=== PATIENT | female | born 1985 | race Caucasian/White ===

== ENCOUNTER → 2018-09-15 10:31 | Outpatient (CLI) | payer OTHER, SELFPAY ==
--- NOTE | 2018-09-15 10:36 | BI_ITS ---
MAMMOGRAPHY - BILATERAL SCREENING REASON FOR EXAM: Female, 33 years old. Routine annual screening examination. PERTINENT HISTORY: Non-contributory. Retraction of the right nipple. TECHNIQUE: Digital bilateral breast robby (3D mammographic acquisition) in the CC and MLO projections. 2-D mediolateral oblique (MLO) and craniocaudad (CC) views of both breasts were obtained. CAD: Full Field Digital Mammography with Computer Added Detection was performed. COMPARISON: None. Baseline examination. FINDINGS: Breast Composition: The breasts are heterogeneously dense, which may obscure small masses. A cluster microcalcification and questionable tiny nodule seen in the deep medial retroareolar region of the right breast a biopsy is recommended for further evaluation. No other significant abnormalities are identified. BI/SCREENING MAMM (CAD), BILAT IMPRESSION: Clustered microcalcification and tiny nodular density in the medial retroareolar region of the right breast as described. A biopsy is recommended for further evaluation. ASSESSMENT CATEGORY: BIRADS Category 4: Suspicious - Biopsy Should Be Considered. A letter regarding these results will be sent to the patient by the facility within 30 days. Approximately 10% of breast cancers are not detected by mammography. A normal mammogram should not delay biopsy of a clinically suspicious abnormality. [id number] Electronically Signed: Daniel Monroy MD at 14:32 EST Tel [phone], Service support ,
== END ==
PROVIDERS: Family Provider Internal Medicine; PCP Internal Medicine; Referring Provider Internal Medicine; Visit Provider Internal Medicine
DX: N64.53 Retraction of nipple (principal); Z12.31 Encounter for screening mammogram for malignant neoplasm of breast
CPT/HCPCS: 77063; 77067

== ENCOUNTER → 2018-09-24 10:24 | Outpatient (CLI) | payer OTHER, SELFPAY ==
[2018-09-22 13:33] VITALS: BMI 29.2
--- NOTE | 2018-09-24 11:15 | BRBX_PTH ---
PATIENT: RITA SHOEMAKER LOC: [facility] U#:[id number] AGE/SX: 40/F ROOM: RE09/24/[address]: Dr. Tushar Mcfarland MD : 1985 BED: DIS: SPEC #: [id number] RECD: 09/24/18 13:44 STATUS: VLADIMIR REDagmar #: [id number] ALFRED: 09/24/18 11:[address]: Tushar Mcfarland DEPT: SURGICAL PATHOLOGY RECD BY: Rahul Harris ENTERED: 09/24/18 13:44 SP TYPE: BREAST BX OTHR DR: Dr. Melba Orta DO Tissues: Right breast, NOS Procedures: Surgery Specimen Level IV HEADER OPERATION: Right stereotactic breast biopsy PRE-OP DIAGNOSIS: Right breast medial density with calcifications TISSUE SUBMITTED: Right breast core tissue ISCHEMIC TIME: 2 minutes FIXATION TIME: 8 hours MICROSCOPIC DIAGNOSIS Right breast, stereotactic core biopsy: Fibroadenoma with focal calcifications. Negative for atypia or malignancy. SJ:karen 09/27/18 COMMENT Correlation with clinical, radiologic findings and appropriate follow up are necessary. MICROSCOPIC DESCRIPTION Slides are reviewed. GROSS DESCRIPTION Received is one container labeled with the patient's name and not further designated. The specimen consists of multiple elongated fragments of goyal-yellow fibroadipose tissue that in aggregate measure 4 x 3 x 0.3 cm. The entire specimen is submitted in two cassettes. / TEDDY:karen 09/24/18 TC:1 CPT: 58051
--- NOTE | 2018-09-24 11:36 | PCM.OPRPT ---
Problem List (1) Abnormal mammogram of right breast Status: Acute Report of Operation Date of Procedure: 09/24/18 Pre-Operative Diagnosis: Clustered microcalcifications medial right breast Post-Operative Diagnosis: Same Surgery/Procedure Performed:: Stereotactic needle core biopsy right breast Description of Surgical Findings:: Timeout informed consent was obtained. 33-year-old female was taken to the stereotactic room. She was placed prone on the table. The right breast was placed in the cc view. Stereotactic images were obtained. The microcalcifications in question rapidly identified. A single target site was selected. The breast was prepped with Betadine. 1% lidocaine was used as local anesthetic. A total of 8 cc was used. A small stab incision was created. An 8-gauge mammotome needle resolve needle was advanced to prefire depth. Prefire films were obtained demonstrating adequate localization. The device was fired. 6 cores were obtained. Specimen mammograms were obtained. Course 1 and 2 had multiple microcalcifications present consistent with the preoperative views. A marking clip was left at 12:00. She was released from the device. Pressure was held for hemostasis. Steri-Strip Telfa OpSite dressing applied. CC and mediolateral views had been obtained. Good localization. No apparent complication. She was given activity and wound care instructions. The specimens were immediately transferred to formalin. No apparent complications. She will be notified of pathology results as they become available. Tushar Mcfarland M.D., F.A.C.S. Type of Anesthesia:: Local
== END ==
PROVIDERS: Family Provider Internal Medicine; PCP Internal Medicine; Referring Provider Surgery; Visit Provider Surgery
DX: D24.1 Benign neoplasm of right breast (principal); Z79.3 Long term (current) use of hormonal contraceptives
CPT/HCPCS: 19081; 88305; J7050

== ENCOUNTER 2019-11-02 01:02 | Emergency (ER) | payer OTHER, SELFPAY ==
[2018-09-22 13:33] VITALS: BMI 29.2
[2019-11-02 01:03] VITALS: BP 126/76; PULSE 90; RESP 18; TEMP 36.8; O2SAT 97; BMI 30.9
--- NOTE | 2019-11-02 01:49 | ED.VISSUMM ---
- ER Visit Summary Date of Service: 11/02/19 Chief Complaint: Left ear pain History of Present Illness: The patient is a 34 F who had a recent upper respiratory infection and is now having left ear pain. She tried Flonase with no improvement. Physical Examination: Left TM is erythematous and bulging. Otherwise exam is unremarkable. Test Results: None indicated Emergency Department Course and Treatment: Patient has an upper respiratory infection which likely evolved into a otitis media. She can continue Flonase. Will add Augmentin and Afrin. Use [id number] remedies for pain. Patient declined steroids. Return for any new or worsening issues. Treatment Plan: As above Disposition: Discharge Impression: 1. Left otitis media This note was generated with Directly dictation software. It may contain incorrect words, spelling, and punctuation that were not noted in review of the chart prior to signing ED Disposition - Plan for ED Patient: Disposition: Home or Assisted Living Instructions: OTITIS MEDIA, Abx Tx (Adult) Prescriptions: Amox/Clavulanate Tablet [Augmentin Tablet] 875 mg PO Q12H #20 tab Prescription Printed Referrals: Melba Orta DO [Primary Care Provider] -
[2019-11-02] MEDS: Oxymetazoline 0.05% 1 SPRAY SPRAY.BTL 2 SPRAY NASAL (01:56)
[2019-11-02] MEDS: Amox/Clavulanate 875 MG Tablet PO (01:56)
== END 2019-11-02 01:58 | disposition home or self-care (01) ==
LOC: ED 01:49
PROVIDERS: Emergency Provider Emergency Medicine; Family Provider Internal Medicine; PCP Internal Medicine
DX: H66.92 Otitis media, unspecified, left ear (principal)
CPT/HCPCS: 99283

== ENCOUNTER → 2021-10-15 | Outpatient (CLI) | payer OTHER, SELFPAY ==
[2021-10-17 16:49] LABS: HPV Reflexed? NOT INDICATED
== END | disposition home or self-care (01) ==
LOC: LABSPEC 12:30
PROVIDERS: PCP Internal Medicine; Referring Provider Internal Medicine; Visit Provider Internal Medicine
DX: Z01.419 Encounter for gynecological examination (general) (routine) without abnormal findings (principal)
CPT/HCPCS: 88175; G0145

== ENCOUNTER 2021-11-13 09:05 | Outpatient (CLI) | payer OTHER, SELFPAY ==
--- NOTE | 2021-11-13 09:07 | BI_ITS ---
MAMMOGRAPHY - BILATERAL SCREENING REASON FOR EXAM: Female, 36 years old. Routine annual screening examination. PERTINENT HISTORY: Non-contributory. History of prior right stereotactic breast biopsy. TECHNIQUE: Digital bilateral breast tseven (3D mammographic acquisition) in the CC and MLO projections. 2-D mediolateral oblique (MLO) and craniocaudad (CC) views of both breasts were obtained. CAD: Full Field Digital Mammography with Computer Added Detection was performed. COMPARISON: Comparison is made with prior study dated 09/15/2018. FINDINGS: Breast Composition: The breasts are heterogeneously dense, which may obscure small masses. There are no dominant masses or suspicious calcifications. Stable small benign-appearing bilateral axillary lymph nodes. A tissue clip marker is seen in the central medial aspect of the right breast. No other significant abnormalities are identified. BI/SCRN MAMM (CAD)W/STEVEN BILAT IMPRESSION: Status post biopsy of the cluster of microcalcifications in the right breast. Yearly follow-up mammogram recommended. (A) ASSESSMENT CATEGORY: BIRADS Category 2: Benign. A letter regarding these results will be sent to the patient by the facility within 30 days. Approximately 10% of breast cancers are not detected by mammography. A normal mammogram should not delay biopsy of a clinically suspicious abnormality. [id number] Electronically Signed: Daniel Monroy MD at 9:45 EST , Service support ,
== END 2021-11-13 23:59 | disposition short-term general hospital (02) ==
LOC: OPBI 09:05
PROVIDERS: PCP Internal Medicine; Referring Provider Internal Medicine; Visit Provider Internal Medicine
DX: Z12.31 Encounter for screening mammogram for malignant neoplasm of breast (principal)
CPT/HCPCS: 77063; 77067

== ENCOUNTER → 2022-12-24 | Outpatient (CLI) | payer OTHER, SELFPAY ==
--- NOTE | 2022-12-24 09:58 | BI_ITS ---
MAMMOGRAPHY - BILATERAL SCREENING REASON FOR EXAM: Female, 37 years old. Routine annual screening examination. PERTINENT HISTORY: Non-contributory. Prior right stereotactic breast biopsy. TECHNIQUE: Digital bilateral breast steven (3D mammographic acquisition) in the CC and MLO projections. 2-D mediolateral oblique (MLO) and craniocaudad (CC) views of both breasts were obtained. CAD: Full Field Digital Mammography with Computer Added Detection was performed. COMPARISON: Comparison is made with prior study dated 11/13/2021 and 09/15/2018. FINDINGS: Breast Composition: The breasts are heterogeneously dense, which may obscure small masses. There are no dominant masses or suspicious calcifications. Stable small benign-appearing bilateral axillary lymph nodes. No other significant abnormalities are identified. There has been no significant change since the prior study. BI/SCRN MAMM (CAD)W/STEVEN BILAT IMPRESSION: Stable bilateral screening mammogram. Yearly follow-up mammogram recommended. (A) ASSESSMENT CATEGORY: BIRADS Category 2: Benign. A letter regarding these results will be sent to the patient by the facility within 30 days. Approximately 10% of breast cancers are not detected by mammography. A normal mammogram should not delay biopsy of a clinically suspicious abnormality. [id number] Electronically Signed: Daniel Monroy MD at 13:00 EST ,
== END | disposition home or self-care (01) ==
LOC: OPBI 09:57
PROVIDERS: PCP Internal Medicine; Visit Provider Internal Medicine
DX: Z12.31 Encounter for screening mammogram for malignant neoplasm of breast (principal)
CPT/HCPCS: 77063; 77067

== ENCOUNTER → 2023-10-14 | Outpatient (CLI) | payer OTHER, SELFPAY ==
--- NOTE | 2023-10-14 15:23 | RAD_ITS ---
STUDY: X-RAY CHEST REASON FOR EXAM: Female, 38 years old. ABN LUNG SOUNDS TECHNIQUE: PA and lateral views of the chest. COMPARISON: None. FINDINGS: The lungs are clear and expanded. There is no demonstrated pleural abnormality. Normal size heart. Normal mediastinum and [place]. Normal visualized pulmonary arteries. Normal visualized aortic arch and descending thoracic aorta. Normal visualized thoracic spine. Normal visualized ribs, clavicles, and shoulders. There is no demonstrated abnormality of the visualized soft tissue structures of the upper abdomen. RAD/Chest PA and Lateral IMPRESSION: Normal x-ray examination of the chest. Electronically Signed: Larissa Hollingsworth MD at 19:16 EST ,
== END | disposition home or self-care (01) ==
PROVIDERS: PCP Internal Medicine; Referring Provider Internal Medicine; Visit Provider Internal Medicine
DX: R09.89 Other specified symptoms and signs involving the circulatory and respiratory systems (principal)
CPT/HCPCS: 71046

== ENCOUNTER → 2023-10-26 | Outpatient (CLI) | payer OTHER, SELFPAY ==
--- NOTE | 2023-10-26 14:59 | RAD_ITS ---
STUDY: X-RAY CHEST REASON FOR EXAM: Female, 38 years old. abnormal lung sounds TECHNIQUE: PA and lateral views of the chest. COMPARISON: None. FINDINGS: The lungs are clear and expanded. There is no demonstrated pleural abnormality. Normal size heart. Normal mediastinum and [place]. Normal visualized pulmonary arteries. Normal visualized aortic arch and descending thoracic aorta. Normal visualized thoracic spine. Normal visualized ribs, clavicles, and shoulders. There is no demonstrated abnormality of the visualized soft tissue structures of the upper abdomen. RAD/Chest PA and Lateral IMPRESSION: Normal x-ray examination of the chest. Electronically Signed: Jacinta Camacho MD at 16:38 EST ,
[2023-10-26 18:11] LABS: Absolute Lymphocyte Count 2.79 X10^3/uL (0.83-4.51); Absolute Neutrophil Count 5.6 X10^3/uL (2.0-7.7); Basophil# 0.07 X10^3/uL; Basophil% 0.7 % (0-1); Eosinophil# 1.16 X10^3/uL; Eosinophils% 11.4 % (0-5); Hemoglobin 13.3 g/dL (12.0-15.0); Lymphocyte # 2.79 X10^3/ul (0.83-4.51); Lymphocyte % 27.3 % (19-41); Mean Corp Hgb Conc 33.3 g/dL (32-36); Mean Corpuscular Hgb 29.5 pg (27.0-32.0); Mean Corpuscular Volume 88.7 fL (81-99); Mean Platelet Vol. 10.5 fl (6.2-12.0); Monocyte# 0.57 X10^3/uL; Monocyte% 5.6 % (0-10); NRBC Flagged by Analyzer 0 % (0-5); Neutrophil # 5.61 X10^3/uL (2.7-7.7); Neutrophil % 54.8 % (47-70); Platelet Count 284 K/mm3 (150-450); RBC Distribution Width CV 12.4 % (11.6-14.6); RBC Distribution Width SD 39.8 fl (35.1-43.9); Red Blood Count 4.51 M/mm3 (4.2-5.4); White Blood Count 10.2 K/mm3 (4.4-11.0)
[2023-10-26 18:30] LABS: ALB/GLOB Ratio 0.8 RATIO (0.9-2.4); AST(SGOT) 18 U/L (15-37); Alanine Aminotransfer ALT/SGPT 22 U/L (13-56); Albumin, Serum 3.6 g/dL (3.2-5.0); Alkaline Phosphatase 92 U/L (45-117); Anion Gap 6 (5-15); BUN 8 mg/dL (7-18); BUN/Creat Ratio 9.3 RATIO (10-20); Calcium,Total 8.6 mg/dL (8.5-10.1); Chloride 110 mmol/L (98-107); Creatinine, Serum 0.86 mg/dL (0.55-1.02); EST Glomerular Filtration Rate 79 mL/min (>60); Est Glom Filt Rate - Afr Amer 96 mL/min (>60); Globulin 4.6 g/dL (2.2-4.2); Glucose 90 mg/dL (74-106); Potassium 3.7 mmol/L (3.5-5.1); Protein, Total 8.2 g/dL (6.4-8.2); Sodium Level 142 mmol/L (136-145)
== END | disposition home or self-care (01) ==
LOC: MTLAB 14:59
PROVIDERS: PCP Internal Medicine; Referring Provider Nurse Practitioner Family; Visit Provider Nurse Practitioner Family
DX: J22 Unspecified acute lower respiratory infection (principal); R09.89 Other specified symptoms and signs involving the circulatory and respiratory systems
CPT/HCPCS: 36415; 71046; 80053; 85025

== ENCOUNTER → 2024-12-14 | Outpatient (CLI) | payer OTHER, SELFPAY ==
--- NOTE | 2024-12-14 12:39 | BI_ITS ---
PROCEDURE: SCRN MAMM (CAD)W/STEVEN BILAT REASON FOR EXAM: Female age 39 y/o , routine annual mammogram.. Prior right stereotactic breast biopsy. TECHNIQUE: Bilateral screening digital breast tomosynthesis with 2D and 3D images. Computer aided detection. COMPARISON: Prior exam(s) dating back to December 24, 2022. FINDINGS: The breasts are heterogeneously dense which may obscure small masses. A tissue clip marker is once again seen in the central anterior medial aspect of the right breast. Stable small benign-appearing axillary lymph nodes. No suspicious masses, areas of developing architectural distortion, or suspicious calcifications. BI/SCRN MAMM (CAD)W/STEVEN BILAT IMPRESSION: BI-RADS 2: BENIGN. RECOMMEND ANNUAL MAMMOGRAPHIC SCREENING. Follow-up code: Routine Follow-up The patient will be notified of the results by letter. Reading Location: [place] [id number]
== END | disposition home or self-care (01) ==
LOC: OPBI 12:38
PROVIDERS: PCP Internal Medicine; Referring Provider Internal Medicine; Visit Provider Internal Medicine
DX: Z12.31 Encounter for screening mammogram for malignant neoplasm of breast (principal)
CPT/HCPCS: 77063; 77067